=== PATIENT | male | born 1955 | race Asian ===

== ENCOUNTER 2016-05-02 15:55 | Emergency (ER) | payer MEDICAID ==
[~2016-05-02] VITALS: Ht 162.6 cm; Wt 61.8 kg
[~2016-05-02 15:55] MED LIST: AMOX1TAB12 PO; CHOL10003 PO; ERLO150T PO; ERLO25TA PO; LEVO750T6 PO; METR500T PO; TEMA30CA6 PO
[2016-05-02] MEDS ORDERED: SODIUM CHLORIDE 0.9% 1,000 ML IV ONE (16:45)
[2016-05-02] MEDS ORDERED: ONDANSETRON 2MG/ML, 2ML ONE (16:58)
[2016-05-02] MEDS ORDERED: KETOROLAC 30 MG/1 ML ONE (16:58)
[2016-05-02] MEDS ORDERED: LORazepam 2 MG/ML, 1ML ONE (16:59)
[2016-05-02] MEDS ORDERED: KETOROLAC 30 MG/1 ML IVPush ONE (17:00)
[2016-05-02] MEDS ORDERED: ONDANSETRON 2MG/ML, 2ML IVPush ONE (17:00)
[2016-05-02] MEDS ORDERED: SODIUM CHLORIDE FLUSH 10ML SYR IVF ONE (17:00)
[2016-05-02] MEDS ORDERED: SODIUM CHLORIDE 0.9% 1,000ML IVBOLUS ONE (17:00)
[2016-05-02] MEDS ORDERED: LORazepam 2 MG/ML, 1ML IVPush ONE (17:00)
[2016-05-02 17:06] LABS: HEMOGLOBIN 15.4 g/dL (13.7-18.0)
[2016-05-02 17:16] LABS: ASPARTATE AMINO TRANSFERASE 14 U/L (15-37); BLOOD UREA NITROGEN 12 mg/dL (7-18)
[2016-05-02] MEDS ORDERED: POTASSIUM CHLORIDE 20 MEQ TAB.ER.PRT PO ONE (18:00)
[2016-05-02] MEDS ORDERED: POTASSIUM CHLORIDE 20 MEQ TAB.ER.PRT ONE (18:32)
[2016-05-02 19:11] LABS: IS PT STATUS REG ER OR PRE ER? YES
[2016-05-02 20:30] VITALS: BP 131/90
== END 2016-05-02 20:44 | disposition home or self-care (01) ==
LOC: ED 20:38
DX: R10.84 Generalized abdominal pain (principal); R07.89 Other chest pain; M79.1 Myalgia; M79.605 Pain in left leg; E87.6 Hypokalemia; E11.9 Type 2 diabetes mellitus without complications; C34.90 Malignant neoplasm of unspecified part of unspecified bronchus or lung; Z98.890 Other specified postprocedural states
CPT/HCPCS: 36415; 74022; 80053; 81003; 83690; 84484; 85025; 87040; 93005; 93971; 96361; 96374; 96375; 99285; J1885; J2060; J2405; J7030

== ENCOUNTER 2016-05-10 06:28 | Emergency (ER) | payer MEDICAID ==
[~2016-05-10] VITALS: Ht 162.6 cm; Wt 60.4 kg
[2016-05-10] MEDS ORDERED: SODIUM CHLORIDE 0.9% 1,000ML IVBOLUS ONE (07:00)
[2016-05-10] MEDS ORDERED: DIAZEPAM 5 MG/ML, 2ML IV ONE (07:00)
[2016-05-10] MEDS ORDERED: SODIUM CHLORIDE FLUSH 10ML SYR IVF ONE (07:00)
[2016-05-10 07:21] LABS: HEMOGLOBIN 15.4 g/dL (13.7-18.0)
[2016-05-10] MEDS ORDERED: DIAZEPAM 5 MG/ML, 2ML ONE (07:21)
[2016-05-10 07:32] LABS: ASPARTATE AMINO TRANSFERASE 13 U/L (15-37); BLOOD UREA NITROGEN 14 mg/dL (7-18)
[2016-05-10] MEDS ORDERED: OMNIPAQUE 350 MG/ML, 100ML BOTTLE ONE (10:49)
[2016-05-10 11:05] VITALS: BP 134/89
[2016-05-10] MEDS ORDERED: POTA20TA91 PO (11:05)
== END 2016-05-10 12:48 | disposition home or self-care (01) ==
LOC: ED 07:20
DX: R10.84 Generalized abdominal pain (principal); E87.1 Hypo-osmolality and hyponatremia; C79.51 Secondary malignant neoplasm of bone; E11.9 Type 2 diabetes mellitus without complications
CPT/HCPCS: 36415; 70491; 74020; 80053; 83605; 83690; 85025; 93005; 96361; 96374; 99285; J3360; J7030; Q9967

== ENCOUNTER → 2016-05-11 | Outpatient (CLI) | payer MEDICAID ==
[~2016-05-11] MED LIST changes: +GADOBUTROL 7.5 MMOL/7.5 ML PFS ONE; +OMNIPAQUE 350 MG/ML, 100ML BOTTLE ONE; +POTA20TA91 PO
== END | disposition home or self-care (01) ==
LOC: RAD 10:17
PROVIDERS: ATTEND Specialist
DX: C34.91 Malignant neoplasm of unspecified part of right bronchus or lung (principal); G31.9 Degenerative disease of nervous system, unspecified; J90 Pleural effusion, not elsewhere classified; J18.9 Pneumonia, unspecified organism; M89.58 Osteolysis, other site
CPT/HCPCS: 70553; 71260; 74160; A9585; Q9967

== ENCOUNTER 2016-05-24 20:10 | Emergency (ER) | payer MEDICAID ==
[~2016-05-24] VITALS: Ht 162.6 cm; Wt 71.0 kg
[~2016-05-24 20:10] MED LIST changes: +GABA100C8 PO; -GADOBUTROL 7.5 MMOL/7.5 ML PFS ONE; +HYDR473S47 PO; -OMNIPAQUE 350 MG/ML, 100ML BOTTLE ONE; +ONDA4TAB7 PO; +OXYC-229 PO; +OXYC10TA32 PO; +POLY17PO5 PO; +SENN1TAB7 PO
[2016-05-24] MEDS ORDERED: METOCLOPRAMIDE 5 MG/ML, 2ML IVPush ONE (20:30)
[2016-05-24] MEDS ORDERED: SODIUM CHLORIDE FLUSH 10ML SYR IVF ONE (20:30)
[2016-05-24] MEDS ORDERED: SODIUM CHLORIDE 0.9% 1,000ML IVBOLUS ONE (20:30)
[2016-05-24] MEDS ORDERED: METOCLOPRAMIDE 5 MG/ML, 2ML ONE (20:44)
[2016-05-24 20:57] LABS: HEMOGLOBIN 16.4 g/dL (13.7-18.0)
[2016-05-24 21:07] LABS: ASPARTATE AMINO TRANSFERASE 20 U/L (15-37); BLOOD UREA NITROGEN 13 mg/dL (7-18)
[2016-05-24 22:30] VITALS: BP 129/91
== END 2016-05-24 23:51 | disposition home or self-care (01) ==
LOC: ED 20:23
DX: G89.29 Other chronic pain (principal); M54.2 Cervicalgia; M54.9 Dorsalgia, unspecified; R63.0 Anorexia; C34.90 Malignant neoplasm of unspecified part of unspecified bronchus or lung; E11.9 Type 2 diabetes mellitus without complications
CPT/HCPCS: 36415; 70450; 80053; 83690; 83735; 85025; 93005; 96361; 96374; 99285; J2765; J7030

== ENCOUNTER 2016-05-26 00:38 | Inpatient (IN) | payer MEDICAID ==
[~2016-05-26] VITALS: Ht 162.6 cm; Wt 57.0 kg
[2016-05-26 01:22] LABS: HEMOGLOBIN 15.8 g/dL (13.7-18.0)
[2016-05-26] MEDS ORDERED: SODIUM CHLORIDE 0.9% 1,000ML IVBOLUS ONE (01:30)
[2016-05-26] MEDS ORDERED: SODIUM CHLORIDE FLUSH 10ML SYR IVF ONE (01:30)
[2016-05-26 01:38] LABS: ASPARTATE AMINO TRANSFERASE 16 U/L (15-37); BLOOD UREA NITROGEN 14 mg/dL (7-18)
[2016-05-26 01:50] LABS: ACETAMINOPHEN < 2 mcg/mL (10-30)
[2016-05-26 02:30] LABS: DAU SCREEN DISCLAIMER
[2016-05-26] MEDS ORDERED: PROMETHAZINE 25 MG/ML, 1ML IM PRN (04:00)
[2016-05-26] MEDS ORDERED: LORazepam 2 MG/ML, 1ML IVPush PRN (04:00)
[2016-05-26 04:42] VITALS: BP 152/91
[2016-05-26] MEDS: MORPHINE SULFATE 4 MG/ML, 1ML IVPush PRN ×2 (05:11→07:37)
[2016-05-26] MEDS: AMPICILLIN/SULBACTAM 3 GM in SODIUM CHLORIDE 0.9% 100 ML IV SCH ×3 (05:17→20:14)
[2016-05-26] MEDS: POTASSIUM CHLORIDE 20 MEQ in LACTATED RINGERS 1,000 ML IV SCH ×2 (05:17→16:48)
[2016-05-26] MEDS: ONDANSETRON 2MG/ML, 2ML IVP PRN ×2 (05:44→20:25)
[2016-05-26 07:26] VITALS: BP 151/88
[2016-05-26] MEDS: OxyconTIN ER 10 MG TAB.ER PO SCH ×2 (07:37→20:18)
[2016-05-26] MEDS: POLYETHYLENE GLYCOL 17 GM PACKET PO PRN (10:01)
[2016-05-26] MEDS: ENOXAPARIN 40 MG/0.4 ML SQ SCH (10:02)
[2016-05-26] MEDS: GABAPENTIN 100 MG CAPSULE PO SCH ×3 (10:02→21:00)
[2016-05-26] MEDS: FAMOTIDINE 20 MG TABLET PO SCH ×2 (10:02→20:14)
[2016-05-26 13:49] VITALS: BP 154/91
[2016-05-26] MEDS: LACTULOSE 10 GM/15 ML UDC PO SCH ×2 (15:51→21:20)
[2016-05-26 19:10] VITALS: BP 129/84
[2016-05-27] MEDS ORDERED: OMNIPAQUE 350 MG/ML, 100ML BOTTLE ONE (00:11)
[2016-05-27 01:39] VITALS: BP 154/91
[2016-05-27] MEDS: AMPICILLIN/SULBACTAM 3 GM in SODIUM CHLORIDE 0.9% 100 ML IV SCH ×3 (04:01→22:04)
[2016-05-27 05:12] LABS: HEMOGLOBIN 14.3 g/dL (13.7-18.0)
[2016-05-27 05:53] LABS: BLOOD UREA NITROGEN 10 mg/dL (7-18)
[2016-05-27 07:24] VITALS: BP 145/94
[2016-05-27] MEDS: OxyconTIN ER 10 MG TAB.ER PO SCH ×2 (08:00→20:16)
[2016-05-27] MEDS: FAMOTIDINE 20 MG TABLET PO SCH ×2 (09:00→20:17)
[2016-05-27] MEDS: LACTULOSE 10 GM/15 ML UDC PO SCH ×2 (09:00→20:15)
[2016-05-27] MEDS: ENOXAPARIN 40 MG/0.4 ML SQ SCH (09:00)
[2016-05-27] MEDS: GABAPENTIN 100 MG CAPSULE PO SCH ×3 (09:00→20:17)
[2016-05-27] MEDS: POTASSIUM CHLORIDE 20 MEQ in LACTATED RINGERS 1,000 ML IV SCH ×2 (10:18→13:05)
[2016-05-27] MEDS ORDERED: FENTANYL PF 100 MCG/2ML ONE (14:14)
[2016-05-27] MEDS ORDERED: MIDAZOLAM 1 MG/ML, 5ML ONE (14:14)
[2016-05-27 14:28] VITALS: BP 133/102
[2016-05-27 14:46] VITALS: BP 135/90
[2016-05-27 19:25] VITALS: BP 129/87
[2016-05-27] MEDS: POLYETHYLENE GLYCOL 17 GM PACKET PO PRN (20:15)
[2016-05-27] MEDS: SENNA/DOCUSATE TABLET PO PRN (20:16)
[2016-05-28 02:30] VITALS: BP 149/87
[2016-05-28] MEDS: POTASSIUM CHLORIDE 20 MEQ in LACTATED RINGERS 1,000 ML IV SCH ×2 (03:43→14:28)
[2016-05-28 05:02] LABS: HEMOGLOBIN 14.3 g/dL (13.7-18.0)
[2016-05-28 05:14] LABS: BLOOD UREA NITROGEN 11 mg/dL (7-18)
[2016-05-28 05:19] LABS: ASPARTATE AMINO TRANSFERASE 13 U/L (15-37)
[2016-05-28] MEDS: AMPICILLIN/SULBACTAM 3 GM in SODIUM CHLORIDE 0.9% 100 ML IV SCH ×3 (05:58→20:59)
[2016-05-28] MEDS ORDERED: GADOBUTROL 7.5 MMOL/7.5 ML PFS ONE (07:37)
[2016-05-28] MEDS: ENOXAPARIN 40 MG/0.4 ML SQ SCH (09:39)
[2016-05-28] MEDS: FAMOTIDINE 20 MG TABLET PO SCH ×2 (09:39→20:38)
[2016-05-28] MEDS: GABAPENTIN 100 MG CAPSULE PO SCH ×3 (09:39→20:38)
[2016-05-28] MEDS: OxyconTIN ER 10 MG TAB.ER PO SCH ×2 (09:39→20:38)
[2016-05-28] MEDS: LACTULOSE 10 GM/15 ML UDC PO SCH ×2 (09:39→20:37)
[2016-05-28] MEDS: POLYETHYLENE GLYCOL 17 GM PACKET PO PRN (09:39)
[2016-05-28 09:45] VITALS: BP 126/92
[2016-05-28 13:02] VITALS: BP 126/94
[2016-05-28] MEDS ORDERED: ONDANSETRON 2MG/ML, 2ML ONE (16:16)
[2016-05-28] MEDS: METOCLOPRAMIDE 5 MG/ML, 2ML IVPush SCH ×2 (16:20→20:38)
[2016-05-28] MEDS: METHYLNALTREXONE 12 MG/0.6 ML SQ SCH (16:20)
[2016-05-28] MEDS ORDERED: ONDANSETRON 2MG/ML, 2ML IVP PRN (19:00)
[2016-05-28 19:25] VITALS: BP 149/96
[2016-05-28] MEDS: ONDANSETRON 2MG/ML, 2ML IVP PRN (23:30)
[2016-05-29 03:19] VITALS: BP 120/72
[2016-05-29] MEDS: METOCLOPRAMIDE 5 MG/ML, 2ML IVPush SCH ×4 (03:49→21:24)
[2016-05-29] MEDS: AMPICILLIN/SULBACTAM 3 GM in SODIUM CHLORIDE 0.9% 100 ML IV SCH ×3 (05:47→21:25)
[2016-05-29 05:59] LABS: HEMOGLOBIN 15.8 g/dL (13.7-18.0)
[2016-05-29 06:30] LABS: BLOOD UREA NITROGEN 6 mg/dL (7-18)
[2016-05-29] MEDS: MORPHINE SULFATE 4 MG/ML, 1ML IVPush PRN ×4 (06:31→21:32)
[2016-05-29 07:44] VITALS: BP 132/92
[2016-05-29] MEDS: OxyconTIN ER 10 MG TAB.ER PO SCH ×2 (08:44→21:23)
[2016-05-29] MEDS: LACTULOSE 10 GM/15 ML UDC PO SCH ×2 (08:45→21:23)
[2016-05-29] MEDS: ENOXAPARIN 40 MG/0.4 ML SQ SCH (08:45)
[2016-05-29] MEDS: FAMOTIDINE 20 MG TABLET PO SCH ×2 (08:45→21:23)
[2016-05-29] MEDS: GABAPENTIN 100 MG CAPSULE PO SCH ×3 (08:45→21:23)
[2016-05-29] MEDS: ONDANSETRON 2MG/ML, 2ML IVP PRN ×2 (10:21→21:32)
[2016-05-29 13:55] VITALS: BP 124/89
[2016-05-29 19:42] VITALS: BP 127/93
[2016-05-30 01:46] VITALS: BP 143/85
[2016-05-30] MEDS: METOCLOPRAMIDE 5 MG/ML, 2ML IVPush SCH ×3 (04:21→15:30)
[2016-05-30] MEDS: ONDANSETRON 2MG/ML, 2ML IVP PRN ×3 (04:21→19:51)
[2016-05-30] MEDS: AMPICILLIN/SULBACTAM 3 GM in SODIUM CHLORIDE 0.9% 100 ML IV SCH ×3 (05:52→21:24)
[2016-05-30 06:49] VITALS: BP 125/92
[2016-05-30] MEDS: OxyconTIN ER 10 MG TAB.ER PO SCH ×2 (08:00→21:20)
[2016-05-30] MEDS: GABAPENTIN 100 MG CAPSULE PO SCH ×2 (09:00→16:00)
[2016-05-30] MEDS: FAMOTIDINE 20 MG TABLET PO SCH ×2 (09:00→21:25)
[2016-05-30] MEDS: LACTULOSE 10 GM/15 ML UDC PO SCH ×2 (09:00→21:20)
[2016-05-30] MEDS: ENOXAPARIN 40 MG/0.4 ML SQ SCH (10:30)
[2016-05-30 12:51] VITALS: BP 117/84
[2016-05-30] MEDS: METHYLNALTREXONE 12 MG/0.6 ML SQ SCH (15:30)
[2016-05-30] MEDS ORDERED: GADOBUTROL 7.5 MMOL/7.5 ML PFS ONE (18:22)
[2016-05-30] MEDS: SCOPOLAMINE PATCH, 1.5MG PATCH.TD72 TD SCH (19:54)
[2016-05-30 20:02] VITALS: BP 144/92
[2016-05-30 22:10] VITALS: BP 136/84
[2016-05-31] MEDS: METOCLOPRAMIDE 5 MG/ML, 2ML IVPush SCH ×2 (00:05→06:11)
[2016-05-31 00:08] VITALS: BP 145/96
[2016-05-31 03:45] VITALS: BP 147/92
[2016-05-31] MEDS: ONDANSETRON 2MG/ML, 2ML IVP PRN ×2 (04:29→20:52)
[2016-05-31] MEDS: AMPICILLIN/SULBACTAM 3 GM in SODIUM CHLORIDE 0.9% 100 ML IV SCH ×3 (06:12→21:57)
[2016-05-31 07:13] VITALS: BP 141/90
[2016-05-31] MEDS ORDERED: PROMETHAZINE 12.5 MG SUPP PR PRN (10:30)
[2016-05-31] MEDS: OxyconTIN ER 10 MG TAB.ER PO SCH ×2 (10:33→20:45)
[2016-05-31] MEDS: ENOXAPARIN 40 MG/0.4 ML SQ SCH (10:33)
[2016-05-31] MEDS: FAMOTIDINE 20 MG TABLET PO SCH ×2 (10:33→20:45)
[2016-05-31] MEDS: LACTULOSE 10 GM/15 ML UDC PO SCH ×2 (10:33→20:45)
[2016-05-31 14:04] VITALS: BP 121/86
[2016-05-31 20:43] VITALS: BP 153/86
[2016-05-31] MEDS ORDERED: ASPIRIN 300 MG SUPP PR ONE (23:00)
[2016-05-31] MEDS: SIMVASTATIN 20 MG TABLET PO SCH (23:44)
[2016-06-01 03:45] VITALS: BP 147/99
[2016-06-01 05:27] LABS: HEMOGLOBIN 14.7 g/dL (13.7-18.0)
[2016-06-01] MEDS: AMPICILLIN/SULBACTAM 3 GM in SODIUM CHLORIDE 0.9% 100 ML IV SCH ×3 (05:28→22:28)
[2016-06-01 05:31] LABS: BLOOD UREA NITROGEN 11 mg/dL (7-18)
[2016-06-01 07:27] VITALS: BP 151/96
[2016-06-01] MEDS: OxyconTIN ER 10 MG TAB.ER PO SCH ×2 (08:16→20:01)
[2016-06-01] MEDS: FAMOTIDINE 20 MG TABLET PO SCH ×2 (08:16→20:01)
[2016-06-01] MEDS: LACTULOSE 10 GM/15 ML UDC PO SCH (08:16)
[2016-06-01] MEDS: ENOXAPARIN 40 MG/0.4 ML SQ SCH (08:18)
[2016-06-01] MEDS: ONDANSETRON 2MG/ML, 2ML IVP PRN ×2 (12:05→22:28)
[2016-06-01] MEDS ORDERED: BISACODYL 10 MG SUPP PR PRN (13:00)
[2016-06-01 13:44] VITALS: BP 148/91
[2016-06-01] MEDS: METHYLNALTREXONE 12 MG/0.6 ML SQ SCH (15:25)
[2016-06-01] MEDS: SODIUM CHLORIDE 0.9% 1,000 ML IV SCH (18:22)
[2016-06-01] MEDS ORDERED: POTASSIUM CHLORIDE 40 MEQ in SODIUM CHLORIDE 0.9% 500 ML IV ONE (19:30)
[2016-06-01] MEDS: SIMVASTATIN 20 MG TABLET PO SCH (20:01)
[2016-06-01] MEDS: LACTULOSE 20 GM/30 ML UDC PO SCH (20:01)
[2016-06-01 23:36] VITALS: BP 154/87
[2016-06-02] MEDS: ONDANSETRON 2MG/ML, 2ML IVP PRN ×3 (04:15→20:14)
[2016-06-02 04:19] VITALS: BP_SYST 159; BP_SYST 161; BP_DIAS 101; BP_DIAS 102
[2016-06-02 07:11] VITALS: BP 159/85
[2016-06-02] MEDS: AMPICILLIN/SULBACTAM 3 GM in SODIUM CHLORIDE 0.9% 100 ML IV SCH ×3 (07:43→22:06)
[2016-06-02] MEDS: SODIUM CHLORIDE 0.9% 1,000 ML IV SCH (07:43)
[2016-06-02] MEDS ORDERED: LACTULOSE 20 GM/30 ML UDC PO SCH (09:00)
[2016-06-02] MEDS: OxyconTIN ER 10 MG TAB.ER PO SCH ×2 (09:26→20:14)
[2016-06-02] MEDS: ENOXAPARIN 40 MG/0.4 ML SQ SCH (09:26)
[2016-06-02] MEDS: LACTULOSE 20 GM/30 ML UDC PO SCH ×2 (09:27→20:14)
[2016-06-02] MEDS: FAMOTIDINE 20 MG TABLET PO SCH ×2 (09:27→20:14)
[2016-06-02] MEDS: DOCUSATE 100 MG CAPSULE PO SCH (09:27)
[2016-06-02 13:38] VITALS: BP 147/89
[2016-06-02 20:03] VITALS: BP 158/106
[2016-06-02] MEDS: SIMVASTATIN 20 MG TABLET PO SCH (20:14)
[2016-06-02] MEDS: SCOPOLAMINE PATCH, 1.5MG PATCH.TD72 TD SCH (20:14)
[2016-06-03 03:53] VITALS: BP 158/78
[2016-06-03] MEDS: ONDANSETRON 2MG/ML, 2ML IVP PRN (04:00)
[2016-06-03] MEDS: AMPICILLIN/SULBACTAM 3 GM in SODIUM CHLORIDE 0.9% 100 ML IV SCH (05:39)
[2016-06-03 07:52] VITALS: BP 153/87
[2016-06-03] MEDS: DOCUSATE 100 MG CAPSULE PO SCH (07:54)
[2016-06-03] MEDS: LACTULOSE 20 GM/30 ML UDC PO SCH (07:54)
[2016-06-03] MEDS: ENOXAPARIN 40 MG/0.4 ML SQ SCH (07:54)
[2016-06-03] MEDS: FAMOTIDINE 20 MG TABLET PO SCH (07:54)
[2016-06-03] MEDS: OxyconTIN ER 10 MG TAB.ER PO SCH (07:54)
[2016-06-03] MEDS ORDERED: MEGESTROL ORAL.SUSP 40 MG/ML PO SCH (12:00)
[2016-06-03] MEDS ORDERED: DOCU-30 PO (14:50)
[2016-06-03] MEDS ORDERED: MEGE800O PO (14:50)
[2016-06-03] MEDS ORDERED: ASPI-515 PO (14:56)
[2016-06-03 15:12] VITALS: BP 154/89
[2016-06-03] MEDS: SENNA/DOCUSATE TABLET PO PRN (17:41)
[2016-06-03] MEDS: POLYETHYLENE GLYCOL 17 GM PACKET PO PRN (17:41)
[2016-06-03] MEDS: METHYLNALTREXONE 12 MG/0.6 ML SQ SCH (17:41)
== END 2016-06-03 18:16 | disposition home or self-care (01) | DRG 166 ==
LOC: ED 02:05 → EDIP 03:00 → 3NW 04:15
PROVIDERS: ADMIT Internal Medicine; ATTEND Internal Medicine
PROC: 0T9B70Z Drainage of Bladder with Drainage Device, Via Natural or Artificial Opening (ICD-10-PCS; principal; 2016-05-26)
PROC: 0B9D8ZX Drainage of Right Middle Lung Lobe, Via Natural or Artificial Opening Endoscopic, Diagnostic (ICD-10-PCS; 2016-05-27)
PROC: 0B9F8ZX Drainage of Right Lower Lung Lobe, Via Natural or Artificial Opening Endoscopic, Diagnostic (ICD-10-PCS; 2016-05-27)
PROC: 0B938ZX Drainage of Right Main Bronchus, Via Natural or Artificial Opening Endoscopic, Diagnostic (ICD-10-PCS; 2016-05-27)
DX: J18.9 Pneumonia, unspecified organism (principal); G93.40 Encephalopathy, unspecified; E43 Unspecified severe protein-calorie malnutrition; I63.8 Other cerebral infarction; C34.90 Malignant neoplasm of unspecified part of unspecified bronchus or lung; C79.51 Secondary malignant neoplasm of bone; D68.69 Other thrombophilia; R64 Cachexia; G91.9 Hydrocephalus, unspecified; E87.6 Hypokalemia; R62.7 Adult failure to thrive; I10 Essential (primary) hypertension; E11.9 Type 2 diabetes mellitus without complications; G89.29 Other chronic pain; K59.00 Constipation, unspecified; R56.9 Unspecified convulsions; Z77.22 Contact with and (suspected) exposure to environmental tobacco smoke (acute) (chronic); Z80.1 Family history of malignant neoplasm of trachea, bronchus and lung; Z82.3 Family history of stroke; Z68.21 Body mass index [BMI] 21.0-21.9, adult
CPT/HCPCS: 31624; 36415; 70553; 71250; 72156; 72157; 72158; 74022; 74177; 80048; 80053; 80307; 80329; 81001; 82140; 83735; 84100; 84145; 84443; 85025; 87015; 87070; 87102; 87116; 87205; 87206; 88108; 88112; 93005; 95819; 96360; 96361; A9585; J0295; J1650; J2250; J2405; J2550; J3010; J3480; Q9967; G0480; J2060; J2765; J7030; J7040; J7120

== ENCOUNTER 2016-06-08 00:28 | Emergency (ER) | payer MEDICAID ==
[~2016-06-08] VITALS: Ht 162.6 cm; Wt 60.0 kg
[~2016-06-08 00:28] MED LIST changes: +ASPI-515 PO; +DOCU-30 PO; +MEGE800O PO
[2016-06-08] MEDS ORDERED: PINK LADY ENEMA 1,000 ML PR ONE (02:00)
[2016-06-08] MEDS ORDERED: METHYLNALTREXONE 12 MG/0.6 ML SQ ONE (03:30)
[2016-06-08 04:25] VITALS: BP 147/87
== END 2016-06-08 04:31 | disposition home or self-care (01) ==
LOC: ED 00:46
DX: K59.00 Constipation, unspecified (principal); E11.9 Type 2 diabetes mellitus without complications; C34.90 Malignant neoplasm of unspecified part of unspecified bronchus or lung
CPT/HCPCS: 74020; 96372

== ENCOUNTER 2016-06-13 17:15 | Inpatient (IN) | payer MEDICAID ==
[~2016-06-13] VITALS: Ht 162.6 cm; Wt 52.2 kg
[2016-06-13] MEDS ORDERED: SODIUM CHLORIDE FLUSH 10ML SYR IVF ONE (17:30)
[2016-06-13] MEDS ORDERED: SODIUM CHLORIDE 0.9% 1,000ML IVBOLUS ONE (17:30)
[2016-06-13] MEDS ORDERED: PLEASE ENTER HEIGHT AND WEIGHT MC SCH (18:00)
[2016-06-13 18:01] LABS: ASPARTATE AMINO TRANSFERASE 18 U/L (15-37); BLOOD UREA NITROGEN 20 mg/dL (7-18)
[2016-06-13] MEDS ORDERED: OXYC1TAB9 PO (18:29)
[2016-06-13] MEDS ORDERED: CHOL200012 PO (18:29)
[2016-06-13] MEDS ORDERED: DEXA4TAB PO (18:29)
[2016-06-13] MEDS ORDERED: ERLO150T PO (18:29)
[2016-06-13] MEDS ORDERED: GABA100C PO (18:29)
[2016-06-13] MEDS ORDERED: ONDANSETRON 2MG/ML, 2ML ONE (19:27)
[2016-06-13] MEDS ORDERED: MORPHINE SULFATE 4 MG/ML, 1ML ONE (19:27)
[2016-06-13] MEDS ORDERED: ONDANSETRON 2MG/ML, 2ML IVPush ONE (19:30)
[2016-06-13] MEDS ORDERED: MORPHINE SULFATE 4 MG/ML, 1ML IVPush PRN (19:30)
[2016-06-13] MEDS ORDERED: OXYcodone/APAP 10/325MG TABLET ONE (19:50)
[2016-06-13] MEDS ORDERED: OXYcodone IR 5MG TABLET ONE (19:52)
[2016-06-13] MEDS ORDERED: OXYcodone IR 5MG TABLET PO PRN (20:00)
[2016-06-13] MEDS ORDERED: ACETAMINOPHEN 325 MG TABLET PO PRN (20:30)
[2016-06-13] MEDS ORDERED: ONDANSETRON 2MG/ML, 2ML IVP PRN (20:30)
[2016-06-13] MEDS ORDERED: POLYETHYLENE GLYCOL 17 GM PACKET PO PRN (20:30)
[2016-06-13 21:30] VITALS: BP 158/105
[2016-06-13] MEDS: SODIUM CHLORIDE 0.9% 1,000 ML IV SCH (22:42)
[2016-06-13] MEDS: HEPARIN 5,000 UNITS/ML, 1ML SQ SCH (22:43)
[2016-06-14 02:16] VITALS: BP 155/103
[2016-06-14] MEDS: SODIUM CHLORIDE 0.9% 1,000 ML IV SCH ×2 (06:13→12:13)
[2016-06-14] MEDS: HEPARIN 5,000 UNITS/ML, 1ML SQ SCH ×3 (06:14→22:30)
[2016-06-14 07:17] VITALS: BP 167/107
[2016-06-14 07:17] LABS: ASPARTATE AMINO TRANSFERASE 17 U/L (15-37); BLOOD UREA NITROGEN 13 mg/dL (7-18)
[2016-06-14] MEDS ORDERED: GADOBUTROL 7.5 MMOL/7.5 ML PFS ONE (08:50)
[2016-06-14] MEDS ORDERED: ERLOTINIB HCL 150 MG PO SCH (09:00)
[2016-06-14] MEDS: CHOLECALCIFEROL 1,000 UNIT TABLET PO SCH (09:00)
[2016-06-14] MEDS ORDERED: DEXAMETHASONE 4 MG TABLET PO SCH (09:00)
[2016-06-14] MEDS: GABAPENTIN 100 MG CAPSULE PO SCH (09:00)
[2016-06-14] MEDS ORDERED: LABETALOL 20 MG/4 ML ONE (10:15)
[2016-06-14] MEDS ORDERED: PROPOFOL 10 MG/ML, 20ML ONE (10:15)
[2016-06-14] MEDS ORDERED: ONDANSETRON 2MG/ML, 2ML ONE (10:15)
[2016-06-14] MEDS ORDERED: CEFAZOLIN 1,000 MG ONE (10:15)
[2016-06-14] MEDS ORDERED: DEXAMETHASONE 4 MG/ML, 1ML ONE (10:15)
[2016-06-14] MEDS ORDERED: GLYCOPYRROLATE 0.2MG/1ML ONE (10:15)
[2016-06-14] MEDS ORDERED: ROCURONIUM 10 MG/ML ONE (10:15)
[2016-06-14] MEDS ORDERED: NEOSTIGMINE 1 MG/ML, 10ML ONE (10:15)
[2016-06-14] MEDS ORDERED: BUPIVACAINE/PF-EPI 0.25% 1:200K ONE (18:35)
[2016-06-14] MEDS ORDERED: BACITRACIN 50,000 UNIT ONE (18:35)
[2016-06-14] MEDS ORDERED: THROMBIN 20,000 UNIT VIAL TP ONE (18:35)
[2016-06-14] MEDS ORDERED: FENTANYL PF 250 MCG/5ML ONE (20:01)
[2016-06-14] MEDS ORDERED: NEOSPORIN OINT, 15GM ONE (20:52)
[2016-06-14] MEDS ORDERED: BACITRACIN 50,000 UNIT IRRIG ONE (20:54)
[2016-06-14 20:59] LABS: CYTOLOGY BODY FLUID RECD INTO PATHOLOGY; CYTOLOGY BODY FLUID SOURCE CEREBROSPINAL FLUID
[2016-06-14] MEDS ORDERED: ONDANSETRON 2MG/ML, 2ML IVPush PRN (21:30)
[2016-06-14] MEDS ORDERED: FENTANYL PF 100 MCG/2ML IV PRN (21:30)
[2016-06-14] MEDS ORDERED: MEPERIDINE/PF 25MG/0.5ML IVPush PRN (21:30)
[2016-06-14] MEDS ORDERED: ALBUTEROL/IPRATROPIUM 2.5MG/0.5MG, 3 ML NPPB PRN (21:30)
[2016-06-14] MEDS ORDERED: LABETALOL 5MG/ML, 20ML IV PRN (21:30)
[2016-06-14] MEDS ORDERED: HYDROmorphone 1 MG/ML, 1ML IV PRN (21:30)
[2016-06-14] MEDS ORDERED: PROMETHAZINE 25 MG/ML, 1ML IV PRN (21:30)
[2016-06-14] MEDS ORDERED: hydrALAzine 20 MG/ML, 1ML IV PRN (21:30)
[2016-06-14] MEDS ORDERED: MIDAZOLAM 1 MG/ML, 2ML IV PRN (21:30)
[2016-06-14 21:42] LABS: GLUCOSE, CSF 54 mg/dL (40-80)
[2016-06-14] MEDS ORDERED: LABETALOL 5MG/ML, 20ML IVPush PRN (23:00)
[2016-06-14] MEDS: CEFAZOLIN PMX 1GM/50ML 50 ML IV SCH (23:06)
[2016-06-14] MEDS: DEXAMETHASONE 4 MG/ML, 1ML IVPush SCH (23:44)
[2016-06-15] MEDS: SODIUM CHLORIDE 0.9% 1,000 ML IV SCH ×4 (01:21→22:25)
[2016-06-15] MEDS: morphine SULFATE 10 MG/ML, 1ML IVPush PRN ×2 (03:30→04:07)
[2016-06-15 04:37] LABS: BLOOD UREA NITROGEN 14 mg/dL (7-18)
[2016-06-15] MEDS: HEPARIN 5,000 UNITS/ML, 1ML SQ SCH (06:30)
[2016-06-15] MEDS ORDERED: ONDANSETRON 2MG/ML, 2ML IV PRN (08:30)
[2016-06-15] MEDS: CEFAZOLIN PMX 1GM/50ML 50 ML IV SCH ×3 (08:49→23:05)
[2016-06-15] MEDS: CHOLECALCIFEROL 1,000 UNIT TABLET PO SCH (09:00)
[2016-06-15] MEDS: GABAPENTIN 100 MG CAPSULE PO SCH (09:00)
[2016-06-15] MEDS: DEXAMETHASONE 4 MG/ML, 1ML IVPush SCH ×2 (10:13→21:46)
[2016-06-16] MEDS: SODIUM CHLORIDE 0.9% 1,000 ML IV SCH ×3 (04:30→18:34)
[2016-06-16 05:23] VITALS: BP 146/94
[2016-06-16] MEDS: CEFAZOLIN PMX 1GM/50ML 50 ML IV SCH ×3 (06:38→23:07)
[2016-06-16] MEDS: CHOLECALCIFEROL 1,000 UNIT TABLET PO SCH (10:44)
[2016-06-16] MEDS: GABAPENTIN 100 MG CAPSULE PO SCH (10:45)
[2016-06-16] MEDS: DEXAMETHASONE 4 MG/ML, 1ML IVPush SCH ×2 (10:45→21:31)
[2016-06-17] MEDS: SODIUM CHLORIDE 0.9% 1,000 ML IV SCH ×3 (02:06→09:20)
[2016-06-17 04:00] VITALS: BP 150/93
[2016-06-17 04:53] LABS: BLOOD UREA NITROGEN 13 mg/dL (7-18)
[2016-06-17] MEDS: CEFAZOLIN PMX 1GM/50ML 50 ML IV SCH ×3 (06:38→23:33)
[2016-06-17] MEDS: GABAPENTIN 100 MG CAPSULE PO SCH (09:20)
[2016-06-17] MEDS: DEXAMETHASONE 4 MG/ML, 1ML IVPush SCH ×2 (09:20→21:30)
[2016-06-17] MEDS: CHOLECALCIFEROL 1,000 UNIT TABLET PO SCH (09:20)
[2016-06-17 11:04] LABS: DIFF TOTAL CELLS COUNTED 100 CELL DIFF
[2016-06-17 11:23] LABS: VERIFY COUNTS? YES
[2016-06-17] MEDS: BISACODYL 10 MG SUPP PR PRN (15:33)
[2016-06-18 04:00] VITALS: BP 142/99
[2016-06-18] MEDS: SODIUM CHLORIDE 0.9% 1,000 ML IV SCH ×2 (04:30→23:24)
[2016-06-18 04:45] LABS: BLOOD UREA NITROGEN 11 mg/dL (7-18)
[2016-06-18 04:48] LABS: ASPARTATE AMINO TRANSFERASE 14 U/L (15-37)
[2016-06-18] MEDS: CEFAZOLIN PMX 1GM/50ML 50 ML IV SCH ×3 (07:33→23:24)
[2016-06-18] MEDS: DEXAMETHASONE 4 MG/ML, 1ML IVPush SCH ×2 (09:03→20:31)
[2016-06-18] MEDS: CHOLECALCIFEROL 1,000 UNIT TABLET PO SCH (09:03)
[2016-06-18] MEDS: GABAPENTIN 100 MG CAPSULE PO SCH (09:03)
[2016-06-18] MEDS: morphine SULFATE 10 MG/ML, 1ML IVPush PRN (23:24)
[2016-06-19 04:00] VITALS: BP 144/95
[2016-06-19 04:33] LABS: BLOOD UREA NITROGEN 12 mg/dL (7-18)
[2016-06-19] MEDS: CEFAZOLIN PMX 1GM/50ML 50 ML IV SCH ×3 (06:08→23:20)
[2016-06-19] MEDS: CHOLECALCIFEROL 1,000 UNIT TABLET PO SCH (09:40)
[2016-06-19] MEDS: GABAPENTIN 100 MG CAPSULE PO SCH (09:40)
[2016-06-19] MEDS: DEXAMETHASONE 4 MG/ML, 1ML IVPush SCH ×2 (09:40→20:37)
[2016-06-19] MEDS: SODIUM CHLORIDE 0.9% 1,000 ML IV SCH (20:37)
[2016-06-20 04:00] VITALS: BP 123/83
[2016-06-20 05:00] LABS: BLOOD UREA NITROGEN 12 mg/dL (7-18)
[2016-06-20] MEDS: CEFAZOLIN PMX 1GM/50ML 50 ML IV SCH ×3 (06:33→23:26)
[2016-06-20] MEDS: morphine SULFATE 10 MG/ML, 1ML IVPush PRN ×2 (08:12→11:07)
[2016-06-20] MEDS: BISACODYL 10 MG SUPP PR PRN (08:13)
[2016-06-20] MEDS: DEXAMETHASONE 4 MG/ML, 1ML IVPush SCH ×2 (10:28→20:56)
[2016-06-20] MEDS: CHOLECALCIFEROL 1,000 UNIT TABLET PO SCH (10:28)
[2016-06-20] MEDS: GABAPENTIN 100 MG CAPSULE PO SCH (10:28)
[2016-06-20] MEDS: SODIUM CHLORIDE 0.9% 1,000 ML IV SCH (17:00)
[2016-06-21 04:00] VITALS: BP 129/88
[2016-06-21] MEDS: CEFAZOLIN PMX 1GM/50ML 50 ML IV SCH ×3 (06:50→23:32)
[2016-06-21] MEDS: CHOLECALCIFEROL 1,000 UNIT TABLET PO SCH (10:51)
[2016-06-21] MEDS: GABAPENTIN 100 MG CAPSULE PO SCH (10:51)
[2016-06-21] MEDS: DEXAMETHASONE 4 MG/ML, 1ML IVPush SCH ×2 (10:51→22:17)
[2016-06-21] MEDS: morphine SULFATE 10 MG/ML, 1ML IVPush PRN (12:37)
[2016-06-21] MEDS: SODIUM CHLORIDE 0.9% 1,000 ML IV SCH (16:21)
[2016-06-21 16:45] VITALS: BP 146/90
[2016-06-21 20:32] VITALS: BP 141/92
[2016-06-22 02:22] VITALS: BP 150/96
[2016-06-22 08:43] VITALS: BP 148/94
== END 2016-06-22 14:45 | disposition hospice, home (50) | DRG 25 ==
LOC: ED 18:47 → EDIP 19:30 → 3NW 21:34 → CCU 06-14 09:15 → 3NW 06-21 16:21
PROVIDERS: ADMIT Internal Medicine; ATTEND Internal Medicine
PROC: 009600Z Drainage of Cerebral Ventricle with Drainage Device, Open Approach (ICD-10-PCS; principal; 2016-06-14 21:00)
PROC: 0T9B70Z Drainage of Bladder with Drainage Device, Via Natural or Artificial Opening (ICD-10-PCS; 2016-06-15)
DX: G91.0 Communicating hydrocephalus (principal); G93.41 Metabolic encephalopathy; I61.5 Nontraumatic intracerebral hemorrhage, intraventricular; E44.1 Mild protein-calorie malnutrition; C34.90 Malignant neoplasm of unspecified part of unspecified bronchus or lung; C79.51 Secondary malignant neoplasm of bone; Z68.1 Body mass index [BMI] 19.9 or less, adult; R62.7 Adult failure to thrive; E11.9 Type 2 diabetes mellitus without complications; I10 Essential (primary) hypertension; M54.2 Cervicalgia; M54.9 Dorsalgia, unspecified; G93.2 Benign intracranial hypertension; E86.0 Dehydration; Z51.5 Encounter for palliative care; G89.3 Neoplasm related pain (acute) (chronic); Z86.73 Personal history of transient ischemic attack (TIA), and cerebral infarction without residual deficits; Z82.3 Family history of stroke; Z91.19 Patient's noncompliance with other medical treatment and regimen; Z87.01 Personal history of pneumonia (recurrent); Z78.1 Physical restraint status
CPT/HCPCS: 36415; 70450; 70553; 71010; 80048; 80053; 81001; 81003; 82140; 82945; 82962; 83690; 83735; 84100; 84157; 85025; 85610; 85730; 87070; 87081; 87205; 88108; 89051; 96360; 96361; A9585; C1729; J0690; J1100; J1644; J2405; J2704; J2710; J3010; J3490; J2270; J7030